=== PATIENT | male | born 1945 | race American Indian/Alaskan Native ===

== ENCOUNTER 2019-12-11 11:16 | Emergency (ER) | payer MEDICARE ==
--- NOTE | 2019-12-11 13:02 | Event Note ---
ED Screening Note Date of service: 12/11/19 Time: 12:59 ED Screening Note: 74 y o male was sent from Cardio rehab cus he felt hot and felt like he was going to faint but did not This initial assessment/diagnostic orders/clinical plan/treatment(s) is/are subject to change based on patients health status, clinical progression and re- assessment by fellow clinical providers in the ED. Further treatment and workup at subsequent clinical providers discretion. Patient/guardian urged not to elope from the ED as their condition may be serious if not clinically assessed and managed. Initial orders include: cbc,cmp main eval med clearance
[2019-12-11 13:29] LABS: Basophils # (Auto) 0.1 K/mm3 (0.0-0.1); Basophils % (Auto) 1.4 % (0.0-1.8); Eosinophils # (Auto) 0.2 K/mm3 (0.0-0.4); Eosinophils % (Auto) 3.4 % (0.0-4.3); Hematocrit 35.9 % (35.5-45.6); Hemoglobin 12.4 gm/dl (11.8-15.2); Lymphocytes # (Auto) 1.8 K/mm3 (1.2-5.4); Lymphocytes % (Auto) 37.7 % (13.4-35.0); Mean Corpuscular HGB Conc 35 % (32-34); Mean Corpuscular Volume 89 fl (84-94); Monocytes # (Auto) 0.5 K/mm3 (0.0-0.8); Monocytes % (Auto) 10.2 % (0.0-7.3); Platelet Count 173 K/mm3 (140-440); Red Blood Count 4.04 M/mm3 (3.65-5.03)
[2019-12-11 13:41] LABS: Red Cell Distribution Width 20.5 % (13.2-15.2)
[2019-12-11 13:58] LABS: Albumin 4.2 g/dL (3.9-5); Calcium 9.5 mg/dL (8.4-10.2)
[2019-12-11] MEDS ORDERED: POTASSIUM CHLORIDE ER 20 MEQ TAB PO ONE (14:41)
--- NOTE | 2019-12-11 15:09 | Emergency Department Report ---
HPI - General Chief Complaint: Syncope Time Seen by Provider: 12/11/19 14:38 - HPI HPI: 74-year-old -[place] male presents to the emergency department from cardiac rehabilitation at this hospital with a complaint of a syncopal versus near syncopal episode while he was exercising this morning. The patient had cardiac surgery done in August of last year at [facility]. Currently the patient is awake, alert, oriented without any physical or general complaints. He says that he feels well and at his baseline status. The patient says he did not eat any breakfast and took his blood pressure medications this morning and thinks that he overexerted himself. Patient says that he got lightheaded/dizzy prior to this event. He denies any chest pain, shortness of breath, headache, vision change, slurred speech, or any other neurological deficits. He has a history of hypertension and some renal insufficiency. He is currently following up with a flower shop laborer/designer through [place], Dr. Gomez, and has an appointment next Tuesday. His primary care physician is a Dr. Ramirez. ED Past Medical Hx - Past Medical History Previous Medical History?: Yes Hx Hypertension: Yes - Social History Smoking Status: Former Smoker - Medications Home Medications: Home Medications Medication Instructions Recorded Confirmed Last Taken Type Aspirin EC [Halfprin EC] 81 mg PO QDAY 11/21/19 11/21/19 10/18/19 History Atorvastatin [Lipitor Tab] 40 mg PO QHS 11/21/19 11/21/19 10/18/19 History Clopidogrel [Plavix] 75 mg PO DAILY 11/21/19 11/21/19 10/18/19 History HYDROcodone/APAP 5-325 [Walker 1 each PO PRN PRN 11/21/19 11/21/19 10/17/19 History 5/325] Lactobacillus Combination No.8 1 each PO DAILY 11/21/19 11/21/19 10/18/19 History [Adult Probiotic] Torsemide [Demadex] 100 mg PO 5XW 11/21/19 11/21/19 10/18/19 History allopurinoL [Zyloprim] 100 mg PO DAILY 11/21/19 11/21/19 10/18/19 History carvediloL [Coreg] 25 mg PO DAILY 11/21/19 11/21/19 10/18/19 History dilTIAZem CD [Cardizem Cd] 120 mg PO DAILY 11/21/19 11/21/19 10/18/19 History metOLazone [Zaroxolyn] 5 mg PO 5XW 11/21/19 11/21/19 10/18/19 History ED Review of Systems ROS: Stated complaint: PASSED OUT [facility] REHAB Other details as noted in HPI Comment: All other systems reviewed and negative Constitutional: denies: chills, fever Eyes: denies: eye pain, vision change ENT: denies: ear pain, throat pain Respiratory: denies: cough, shortness of breath Cardiovascular: syncope. denies: chest pain Gastrointestinal: denies: abdominal pain, vomiting Genitourinary: denies: dysuria, discharge Musculoskeletal: denies: back pain, arthralgia Skin: denies: rash, lesions Neurological: other (dizziness). denies: headache Physical Exam - Physical Exam Vital Signs: Vital Signs 12/11/19 11:33 Temperature 97.7 F Pulse Rate 81 Respiratory 18 Rate Blood Pressure 125/71 [Right] O2 Sat by Pulse 99 Oximetry Physical Exam: GENERAL: The patient is well-developed well-nourished. HENT: Normocephalic. Atraumatic. Patient has moist mucous membranes. EYES: Extraocular motions are intact. NECK: Supple. Trachea is midline. CHEST/LUNGS: Clear to auscultation. There is no respiratory distress noted. HEART/CARDIOVASCULAR: Regular. There is no tachycardia. There is no murmur. ABDOMEN: Abdomen is soft, nontender. Patient has normal bowel sounds. SKIN: Skin is warm and dry. NEURO: The patient is awake, alert, and oriented. The patient is cooperative. The patient has no focal neurologic deficits. Normal speech. Cranial nerves II through XII grossly intact. No facial asymmetry. No pronator drift. No dysmetria. MUSCULOSKELETAL: There is no tenderness or deformity. There is no limitation range of motion. There is no evidence of acute injury. ED Course Vital Signs 12/11/19 11:33 Temperature 97.7 F Pulse Rate 81 Respiratory 18 Rate Blood Pressure 125/71 [Right] O2 Sat by Pulse 99 Oximetry ED Medical Decision Making - Lab Data Result diagrams: 12/11/19 13:11 12/11/19 13:11 - EKG Data -: EKG Interpreted by Me EKG shows normal: sinus rhythm, axis, intervals (Prolonged TN interval), QRS complexes, ST-T waves Rate: normal - EKG Data When compared to previous EKG there are: previous EKG unavailable Interpretation: normal EKG - Medical Decision Making This patient presents to the emergency department after having some type of a syncopal or near syncopal episode while exercising during his cardiac rehabilitation. Since being in the emergency department the patient is awake, alert, oriented without any complaints. He has no focal, motor or sensory deficits and his cranial nerves are intact. An EKG was done that did not show any signs of ST elevation AL or any significant dysrhythmia. Patient's labs have been unremarkable including CBC, metabolic panel, TSH other than renal insufficiency and mild elevation in his AST. The patient appears to have a history of some renal insufficiency as he follows with a flower shop laborer/designer and has an appointment coming up this coming Tuesday. Patient did have positive orthosta tics but his syncopal episode almost sounds more vasovagal. Nonetheless, the patient has been reevaluated multiple times over multiple hours and there has been no further syncopal episodes and the patient has been without complaints and feeling at his baseline status. The patient has good outpatient follow-up with primary care, cardiology and nephrology. He has been instructed to follow- up with his PCP and his oil field roustabout prior to continuing his cardiac rehab or any exertional activity. He has been instructed to keep his appointment with his flower shop laborer/designer. He is also been instructed to return to the emergency department with any worsening of his symptoms or any acute distress. - Differential Diagnosis Orthostatic hypotension, vasovagal, hypoglycemia, dysrhythmia Critical Care Time: No Critical care attestation.: If time is entered above; I have spent that time in minutes in the direct care of this critically ill patient, excluding procedure time. ED Disposition Clinical Impression: Orthostatic hypotension, Renal insufficiency Syncope Qualifiers: Syncope type: unspecified Qualified Code(s): R55 - Syncope and collapse Hypertension Qualifiers: Hypertension type: essential hypertension Qualified Code(s): I10 - Essential (primary) hypertension Disposition: DC- TO HOME OR SELFCARE Is pt being admited?: No Condition: Stable Instructions: Syncope (ED), Hypertension (ED) Additional Instructions: Please follow-up with your primary care physician in the next few days. Please follow-up with your oil field roustabout and let them know about your visit to the emergency department prior to continuing with your physical therapy/rehabilitation or any exertional activity. Please follow-up with your kidney doctor regarding the impaired kidney function found today. Return to the emergency department immediately with any further episodes of passing out, development of chest pain, or with any acute distress. Referrals: Laundry Aide, Your [Other] - 2-3 Days PCP, Your [Other] - 2-3 Days Edge Stripper, Your [Other] - 3-5 Days Time of Disposition: 17:01
[2019-12-11 16:57] VITALS: BP 175/92
== END 2019-12-11 16:56 | disposition home or self-care (01) ==
LOC: ED 11:16
DX: I10 Essential (primary) hypertension (principal); I95.1 Orthostatic hypotension; N28.9 Disorder of kidney and ureter, unspecified; Z98.890 Other specified postprocedural states; Z79.82 Long term (current) use of aspirin; Z79.899 Other long term (current) drug therapy; Z87.891 Personal history of nicotine dependence
CPT/HCPCS: 36415; 80053; 84443; 85025; 93005; 93010